=== PATIENT | female | born 1985 | race Caucasian/White ===

== ENCOUNTER 2017-07-01 09:30 | Emergency (ER) | payer MEDICAID ==
[~2017-07-01] VITALS: Ht 175.3 cm; Wt 68.2 kg
[2017-07-01 09:32] VITALS: BP 114/60; PULSE 64; TEMP 98.2
[2017-07-01] MEDS ORDERED: CLEOCIN HC150 MG/CAP PO (10:44)
[2017-07-01] MEDS ORDERED: NORCO 325 MG-51 TAB PO (10:44)
== END 2017-07-01 11:06 | disposition home or self-care (01) ==
LOC: COL.ER 09:30
DX: K08.89 Other specified disorders of teeth and supporting structures (principal)